=== PATIENT | female | born 1950 | race African-American/Black ===

== ENCOUNTER → 2016-03-20 | Outpatient (CLI) | payer OTHER ==
[~2016-03-20] MED LIST: ALBUAER3 INH; ASPI81TA82 PO; AZIT500T2 PO; BENZ100 PO; CALC-179 OR; DOXA1 OR; FLEX10TA PO; LISI10TA PO; MOME17I EACH NARE; POTA-267 PO; PRED-503 PO; SIMV20TA PO; SYNT175T PO; VERA240C OR; VITA400C70 PO
[2016-03-20 11:18] LABS: ANION GAP 5 MEQ/L (5-15); BICARBONATE 30.6 MEQ/L (21.0-32.0); BLOOD UREA NITROGEN 24 MG/DL (7-18); CHLORIDE 103 MEQ/L (98-107); GLOMERULAR FILTRATION RATE 89 ML/MIN (>89); GLUCOSE,FASTING 126 MG/DL (74-99); POTASSIUM 3.8 MEQ/L (3.5-5.1); SODIUM (NA) 139 MEQ/L (136-145)
[2016-03-20 11:24] LABS: BLOOD, URINE NEG (NEG); GLUCOSE,URINE NEG (NEG); KETONE, URINE NEG (NEG); NITRITE,URINE NEG (NEG); PH, URINE 6.5 (5.0-8.5); SQUAMOUS EPITHELIAL CELL URINE <1 /hpf (0-5); URINE COLOR YELLOW (YELLW/STRAW)
[2016-03-20 12:10] LABS: HEMOGLOBIN A1a 0.9 %; HEMOGLOBIN A1b 2.1 %; HEMOGLOBIN Ao 83.5 %; HEMOGLOBIN LA1C 2.2 %; HEMOGLOBIN P3 4.2 %
== END ==
LOC: CLAB 10:05
PROVIDERS: ATTEND Internal Medicine
DX: I10 Essential (primary) hypertension (principal); E11.9 Type 2 diabetes mellitus without complications
CPT/HCPCS: 36415; 80048; 81001; 83036

== ENCOUNTER 2016-04-25 16:17 | Emergency (ER) | payer OTHER ==
[~2016-04-25] VITALS: Ht 165.1 cm; Wt 98.0 kg
[~2016-04-25 16:17] MED LIST changes: -ALBUAER3 INH; -AZIT500T2 PO; -BENZ100 PO; -MOME17I EACH NARE; -PRED-503 PO
[2016-04-25 16:32] VITALS: BP 182/79; PULSE 83; RESP 19; TEMP 98.8; O2SAT 95
--- NOTE | 2016-04-25 16:41 | PD ---
PFSH Past Medical History Cancer: No Cardiovascular Problems: No High Cholesterol: Yes Diabetes: No Endocrine: No Genitourinary: No Hepatitis: No Hiatal Hernia: No Hypertension: Yes Immune Disorder: No Musculoskeletal: No Neurologic: No Psychiatric: No Reproductive: No Respiratory: No Thyroid Disease: Yes (HYPOTHROIDISM) Past Surgical History Abdominal Surgery: No AICD: No Cardiac Surgery: No Ear Surgery: No Endocrine Surgery: No Eye Surgery: No Genitourinary Surgery: No Gynecologic Surgery: Yes ( X 2) Joint Replacement: No Oral Surgery: Yes (TONSILLECTOMY) Pacemaker: No Thoracic Surgery: No Social History Alcohol Use: No Tobacco Use: No Substance Use: No Allergies-Medications (Allergen,Severity, Reaction): Coded Allergies: Sulfa (Verified Allergy, Mild, 04/25/16) Reported Meds & Prescriptions Reported Meds & Active Scripts Active Azithromycin 500 Mg Tab 500 Mg PO DAILY Nasonex Nasal [place] (Mometasone Furoate) 50 Mcg/Act Naspr 2 [place] EACH NARE DAILY PRN Tessalon Perles (Benzonatate) 100 Mg Cap 100 Mg PO TID PRN Deltasone (Prednisone) 20 Mg Tab 40 Mg PO DAILY 4 Days start 04/26/2016 Proair Hfa 8.5 GM Inh (Albuterol Sulfate) 90 Mcg/Act Aer 2 Puff INH Q4-6H PRN 108 mcg/actuation Reported Vitamin E-400 (Vitamin E) 400 Units Cap 400 Units PO DAILY Simvastatin 20 Mg Tab 20 Mg PO HS Verapamil Hcl Er (Verapamil Hcl) 240 Mg Cap 240 Mg OR BID Calcium (Calcium & Phosphorus W/ Vitami) Tab 1 OR BID Lisinopril/Hctz 10 mg/12.5 mg 10 mg/12.5 mg Tab 1 Tab PO BID Klor-Con 10 (Potassium Chloride) 10 Meq Tab 10 Meq PO BID Synthroid 175 mcg (Levothyroxine Sodium) 175 Mcg Tab 175 Mcg PO DAILY Doxazosin Mesylate 4 Mg Tab 4 Mg OR BID Flexeril (Cyclobenzaprine HCl) 10 Mg Tab 10 Mg PO DAILY Aspir-81 (Aspirin) 81 Mg Tab 81 Mg PO DAILY Data Data Last Documented VS Vital Signs Date Time Temp Pulse Resp B/P Pulse Ox O2 Delivery O2 Flow Rate FiO2 04/25/16 17:55 98 04/25/16 16:32 98.8 83 19 182/79 Orders Prednisone (Deltasone) (3/17/17 16:45) Albuterol Neb (Albuterol Neb) (04/25/16 16:45) MDM Scripts Azithromycin 500 Mg [id number] Mg PO DAILY #5 TAB Ref 0 Prov:Jeanie PittsP 04/25/16 Mometasone Nasal [place] (Nasonex Nasal [place])50 Mcg/Act Naspr2 [place] EACH NARE DAILY PRN (NASAL CONGESTION) #1 BOTTLE Ref 0 Prov:Jeanie PittsP 04/25/16 Benzonatate (Tessalon Perles)100 Mg [id number] Mg PO TID PRN (COUGH) #20 CAP Ref 0 Prov:Jeanie PittsP 04/25/16 Prednisone (Deltasone)20 Mg Tab40 Mg PO DAILY 4 Days Ref 0 start 04/26/2016 Prov:Jeanie PittsP 04/25/16 Albuterol 8.5 GM Inh (Proair Hfa 8.5 GM Inh)90 Mcg/Act Aer2 Puff INH Q4-6H PRN ( SOB/WHEEZING) #1 INHALER Ref 0 108 mcg/actuation Prov:Jeanie PittsP 04/25/16 Jeanie PittsP Apr 25, 2016 16:41
[2016-04-25] MEDS ORDERED: predniSONE 20 MG TAB PO ONE (16:45)
[2016-04-25] MEDS ORDERED: RESP: ALBUTEROL 2.5 MG/3 ML NEB (SCH) INH ONE (16:45)
[2016-04-25] MEDS ORDERED: AZIT500T2 PO (16:51)
[2016-04-25] MEDS ORDERED: MOME17I EACH NARE (16:51)
[2016-04-25] MEDS ORDERED: BENZ100 PO (16:51)
[2016-04-25] MEDS ORDERED: ALBUAER3 INH (16:51)
[2016-04-25] MEDS ORDERED: PRED-503 PO (16:51)
--- NOTE | 2016-04-25 17:00 | PD ---
HPI Chief Complaint: Respiratory Symptoms Time Seen by Provider: 16:49 Travel History International Travel<30 days: No Contact w/Intl Traveler<30days: No Traveled to known affect area: No History of Present Illness HPI 65-year-old female presents to the emergency Department with complaint of cough and mild nasal congestion for one week. She started wheezing last night. Denies chest tightness, chest pain, shortness of breath. Is a [employer] employee and while at work today a nurse listen to her lungs and that she was wheezing. She called her primary care provider and he wanted to put her on antibiotics but wanted to see her in the office and she couldn't make it before he closed. Denies fever, chills, nausea, vomiting. Denies ear pain, sore throat. Has tried [id number] medications with no relief of symptoms. Allergies to sulfa. Has established primary care provider. No other modifying factors or associated signs and symptoms. PFSH Past Medical History Hx Anticoagulant Therapy: Yes (ASA ) Cancer: No Cardiovascular Problems: Yes (HTN) High Cholesterol: Yes Diabetes: Yes (BORDERLINE ) Endocrine: No Genitourinary: No Hepatitis: No Hiatal Hernia: No Hypertension: Yes Immune Disorder: No Musculoskeletal: No Neurologic: No Psychiatric: No Reproductive: No Respiratory: No Thyroid Disease: Yes (HYPOTHROIDISM) ?: Not Past Surgical History Abdominal Surgery: No AICD: No Cardiac Surgery: No Ear Surgery: No Endocrine Surgery: No Eye Surgery: No Genitourinary Surgery: No Gynecologic Surgery: Yes ( X 2) Joint Replacement: No Oral Surgery: Yes (TONSILLECTOMY) Pacemaker: No Thoracic Surgery: No Social History Alcohol Use: No Tobacco Use: No Substance Use: No Allergies-Medications (Allergen,Severity, Reaction): Coded Allergies: Sulfa (Verified Allergy, Mild, 04/25/16) Reported Meds & Prescriptions Reported Meds & Active Scripts Active Azithromycin 500 Mg Tab 500 Mg PO DAILY Nasonex Nasal [place] (Mometasone Furoate) 50 Mcg/Act Naspr 2 [place] EACH NARE DAILY PRN Tessalon Perles (Benzonatate) 100 Mg Cap 100 Mg PO TID PRN Deltasone (Prednisone) 20 Mg Tab 40 Mg PO DAILY 4 Days start 04/26/2016 Proair Hfa 8.5 GM Inh (Albuterol Sulfate) 90 Mcg/Act Aer 2 Puff INH Q4-6H PRN 108 mcg/actuation Reported Vitamin E-400 (Vitamin E) 400 Units Cap 400 Units PO DAILY Simvastatin 20 Mg Tab 20 Mg PO HS Verapamil Hcl Er (Verapamil Hcl) 240 Mg Cap 240 Mg OR BID Calcium (Calcium & Phosphorus W/ Vitami) Tab 1 OR BID Lisinopril/Hctz 10 mg/12.5 mg 10 mg/12.5 mg Tab 1 Tab PO BID Klor-Con 10 (Potassium Chloride) 10 Meq Tab 10 Meq PO BID Synthroid 175 mcg (Levothyroxine Sodium) 175 Mcg Tab 175 Mcg PO DAILY Doxazosin Mesylate 4 Mg Tab 4 Mg OR BID Flexeril (Cyclobenzaprine HCl) 10 Mg Tab 10 Mg PO DAILY Aspir-81 (Aspirin) 81 Mg Tab 81 Mg PO DAILY Review of Systems Except as stated in HPI: all other systems reviewed are Neg Physical Exam Narrative GENERAL: Well-nourished, well-developed female patient, in no acute distress; afebrile, nontoxic-appearing SKIN: Warm and dry. HEAD: Atraumatic. Normocephalic. EYES: Pupils equal and round. No scleral icterus. No injection or drainage. ENT: Mucosa pink and moist. No erythema or exudates. No uvular edema. No uvular , palatal, or tonsillar deviation. Airway patent. Nares without nasal blood, purulent drainage or septal hematoma. EARS: Bilateral pinnae and external canals appear within normal limits. Bilateral tympanic membranes without erythema, dullness or perforation. NECK: Trachea midline. No lymphadenopathy. CARDIOVASCULAR: Regular rate and rhythm. No murmur appreciated. RESPIRATORY: No accessory muscle use. Lungs with mild Wheezing throughout to auscultation. Breath sounds equal bilaterally. No retractions or tachypnea. No Audible wheezing noted. GASTROINTESTINAL: Abdomen soft, non-tender, nondistended. Hepatic and splenic margins not palpable. Bowel sounds are active 4 quadrants. MUSCULOSKELETAL: No obvious deformities. No clubbing. No cyanosis. No edema. NEUROLOGICAL: Awake and alert. Oriented 3. No obvious cranial nerve deficits. Motor grossly within normal limits. Normal speech. Moves all extremities. 5/5 strength to all extremities. PSYCHIATRIC: Appropriate mood and affect; insight and judgment normal. Data Data Last Documented VS Vital Signs Date Time Temp Pulse Resp B/P Pulse Ox O2 Delivery O2 Flow Rate FiO2 04/25/16 17:55 98 04/25/16 16:32 98.8 83 19 182/79 Orders Prednisone (Deltasone) (04/25/16 16:45) Albuterol Neb (Albuterol Neb) (04/25/16 16:45) [facility] Medical Decision Making Medical Screen Exam Complete: Yes Emergency Medical Condition: Yes Medical Record Reviewed: Yes Differential Diagnosis Bronchitis, influenza, upper respiratory infection Narrative Course 65-year-old female physical exam And history of present illness consistent with acute bronchitis. She is in no acute distress and oxygen saturation is 95% on room air. She is without retractions or tachypnea. Diffuse wheezing to bilateral lung sounds on auscultation. She is afebrile and nontoxic-appearing. She denies fever, chills, nausea, vomiting. Albuterol nebulizer and Deltasone ordered. Patient reports improvement in symptoms after albuterol nebulizer. Lungs are clear and equal throughout. She denies chest tightness or shortness of breath. Requesting antibiotic for home. Azithromycin, pro-air inhaler, Deltasone, Tessalon Perles, Nasonex nasal spray prescribed for home. Patient verbalizes understanding and agreement with treatment plan. Patient is medically cleared and stable for discharge. Discussed reasons to return to the emergency department. Instructed patient to follow up with primary care provider. Patient agrees with treatment plan. The patients vital signs are stable and the patient is stable for outpatient follow-up and treatment. Patient discharged home, stable and in no acute distress. Diagnosis Primary Impression: Bronchitis Referrals: Primary Care Physician Patient Instructions: Acute Bronchitis (ED), General Instructions, Safe Use of Cough and Cold Medicines (ED) Departure Forms: Tests/Procedures, Work Release Enter return to work date: Apr 26, 2016 Additional Instructions: Use Albuterol inhaler as prescribed Take oral steroids as prescribed and complete full course Use Tessalon Perles as prescribed to decrease coughing spasms Xozr-pli-zhgaohd decongestants or antihistamines as directed and as needed for symptom management Your cough can last 4-6 weeks Drink plenty of fluids to prevent dehydration Use hot air humidifier to decrease cough exacerbation Turn off ceiling fans and sleep with head of bed elevated Avoid triggers such as second hand smoke, dust, known allergens Follow-up with your primary care provider Return to the emergency department immediately with worsening of symptoms Med/Other Pt SpecificInfo: Prescription(s) given Scripts Azithromycin 500 Mg [id number] Mg PO DAILY #5 TAB Ref 0 Prov:Jeanie Pitts 04/25/16 Mometasone Nasal [place] (Nasonex Nasal [place])50 Mcg/Act Naspr2 [place] EACH NARE DAILY PRN (NASAL CONGESTION) #1 BOTTLE Ref 0 Prov:Jeanie Pitts 04/25/16 Benzonatate (Tessalon Perles)100 Mg [id number] Mg PO TID PRN (COUGH) #20 CAP Ref 0 Prov:Jeanie Pitts 04/25/16 Prednisone (Deltasone)20 Mg Tab40 Mg PO DAILY 4 Days Ref 0 start 04/26/2016 Prov:Jeanie Pitts 04/25/16 Albuterol 8.5 GM Inh (Proair Hfa 8.5 GM Inh)90 Mcg/Act Aer2 Puff INH Q4-6H PRN ( SOB/WHEEZING) #1 INHALER Ref 0 108 mcg/actuation Prov:Jeanie Pitts 04/25/16 Disposition: 01 DISCHARGE HOME Condition: Stable Jeanie Pitts Apr 25, 2016 17:00
== END 2016-04-25 17:55 | disposition home or self-care (01) ==
LOC: NEPB 16:17
DX: J40 Bronchitis, not specified as acute or chronic (principal); I10 Essential (primary) hypertension; Z79.82 Long term (current) use of aspirin; Z88.2 Allergy status to sulfonamides
CPT/HCPCS: 94664; 99283; J7512; J7613

== ENCOUNTER 2016-12-01 07:41 | Emergency (ER) | payer OTHER ==
[~2016-12-01] VITALS: Ht 165.1 cm; Wt 100.0 kg
[~2016-12-01 07:41] MED LIST changes: +ALBUAER3 INH; +AZIT500T2 PO; +BENZ100 PO; +MOME17I EACH NARE; +PRED-503 PO
[2016-12-01 07:53] VITALS: BP 198/90; PULSE 92; RESP 17; TEMP 97.6; O2SAT 99
[2016-12-01] MEDS ORDERED: SODIUM CHLORIDE 0.9% FLUSH 10 ML FLUSH IV FLUSH PRN (08:15)
[2016-12-01] MEDS ORDERED: diphenhydrAMINE HCL 50 MG/ML VIAL IVP ONE (08:15)
[2016-12-01] MEDS ORDERED: methylPREDNISolone SOD SUCC 125 MG/2 ML VIAL IV PUSH ONE (08:15)
[2016-12-01] MEDS ORDERED: FAMOTIDINE 20 MG/2 ML VIAL IV PUSH ONE (08:15)
[2016-12-01 08:41] VITALS: BP 187/77; PULSE 86; RESP 18; O2SAT 98
--- NOTE | 2016-12-01 09:19 | RADRPT ---
EXAM DATE/TIME: 12/01/2016 08:35 [facility] COMPARISON: No previous studies available for comparison. INDICATIONS : Pt states she is having mild discomfort and feels as if there is something in her throat. Pt is also having difficulty breathing. MEDICAL HISTORY : Hypertension. Cyst left side of throat. SURGICAL HISTORY : None. ENCOUNTER: Initial ACUITY: 1 day PAIN SCORE: 0/10 LOCATION: Neck. FINDINGS: Two view examination of the soft tissues of the neck demonstrates the hypopharyngeal airway to have a grossly normal configuration. The trachea is midline. No radiopaque foreign bodies are seen. Calc ification in the region of the carotid bifurcation bilaterally. Normal image of the cervical vertebr al bodies. Unfused tip of the spinous process of C7. CONCLUSION: Negative two-view examination the soft tissues of the neck. Cam Dueñas MD on December 01, 2016 at 9:16 Board Certified Radiologist. This report was verified electronically.
[2016-12-01] MEDS ORDERED: DIPH25CA PO (10:33)
[2016-12-01] MEDS ORDERED: PRED20 PO (10:33)
--- NOTE | 2016-12-01 10:34 | PD ---
HPI Chief Complaint: ENT Complaint Time Seen by Provider: 08:09 Travel History International Travel<30 days: No Contact w/Intl Traveler<30days: No Traveled to known affect area: No History of Present Illness HPI 66 yo F c/o fullness sensation in throat. pt woke up with pain and a fullness sensation. She reports completing a course of Keflex about a week ago and wonders if she might be having an allergic reaction to it. She reports a tick bite one week prior. She also reports having undergone a drainage of a cyst of the left anterior neck several days prior. No fever. No dyspnea. PFSH Past Medical History Hx Anticoagulant Therapy: Yes (ASA ) Cancer: No Cardiovascular Problems: Yes (HTN) High Cholesterol: Yes Diabetes: Yes (borderline) Patient Takes Glucophage: No Endocrine: No Genitourinary: No Hepatitis: No Hiatal Hernia: No Hypertension: Yes Immune Disorder: No Musculoskeletal: No Neurologic: No Psychiatric: No Reproductive: No Respiratory: No Thyroid Disease: Yes (hypo) Influenza Vaccination: Yes ?: Not Past Surgical History Abdominal Surgery: No AICD: No Cardiac Surgery: No Ear Surgery: No Endocrine Surgery: No Eye Surgery: No Genitourinary Surgery: No Gynecologic Surgery: Yes ( X 2) Joint Replacement: No Oral Surgery: Yes (TONSILLECTOMY) Pacemaker: No Thoracic Surgery: No Social History Alcohol Use: Yes (on occasion) Tobacco Use: No Substance Use: No Allergies-Medications (Allergen,Severity, Reaction): Coded Allergies: Sulfa (Sulfonamide Antibiotics) (Unverified Allergy, Mild, 09/23/16) Reported Meds & Prescriptions Reported Meds & Active Scripts Active Diphenhydramine (Diphenhydramine HCl) 25 Mg Cap 25 Mg PO Q6H PRN Prednisone 20 Mg Tab 40 Mg PO DAILY 4 Days Take 40 mg (2 tablets) daily for 5 days Azithromycin 500 Mg Tab 500 Mg PO DAILY Nasonex Nasal [place] (Mometasone Furoate) 50 Mcg/Act Naspr 2 [place] EACH NARE DAILY PRN Tessalon Perles (Benzonatate) 100 Mg Cap 100 Mg PO TID PRN Deltasone (Prednisone) 20 Mg Tab 40 Mg PO DAILY 4 Days start 04/26/2016 Proair Hfa 8.5 GM Inh (Albuterol Sulfate) 90 Mcg/Act Aer 2 Puff INH Q4-6H PRN 108 mcg/actuation Reported Vitamin E-400 (Vitamin E) 400 Units Cap 400 Units PO DAILY Simvastatin 20 Mg Tab 20 Mg PO HS Verapamil Hcl Er (Verapamil Hcl) 240 Mg Cap 240 Mg OR BID Calcium (Calcium & Phosphorus W/ Vitami) Tab 1 OR BID Lisinopril/Hctz 10 mg/12.5 mg 10 mg/12.5 mg Tab 1 Tab PO BID Klor-Con 10 (Potassium Chloride) 10 Meq Tab 10 Meq PO BID Synthroid 175 mcg (Levothyroxine Sodium) 175 Mcg Tab 175 Mcg PO DAILY Doxazosin Mesylate 4 Mg Tab 4 Mg OR BID Flexeril (Cyclobenzaprine HCl) 10 Mg Tab 10 Mg PO DAILY Aspir-81 (Aspirin) 81 Mg Tab 81 Mg PO DAILY Review of Systems Except as stated in HPI: all other systems reviewed are Neg General / Constitutional: No: Fever Physical Exam Narrative GENERAL: Well-nourished well-developed 66-year-old female no acute distress SKIN: Warm and dry. HEAD: Atraumatic. Normocephalic. EYES: Pupils equal and round. No scleral icterus. No injection or drainage. ENT: No nasal bleeding or discharge. Mucous membranes pink and moist. Minimal uvular edema present. Posterior oropharynx widely patent. NECK: Trachea midline. No JVD. CARDIOVASCULAR: Regular rate and rhythm. RESPIRATORY: No accessory muscle use. Clear to auscultation. Breath sounds equal bilaterally. GASTROINTESTINAL: Abdomen soft, non-tender, nondistended. Hepatic and splenic margins not palpable. MUSCULOSKELETAL: Extremities without clubbing, cyanosis, or edema. No obvious deformities. NEUROLOGICAL: Awake and alert. No obvious cranial nerve deficits. Motor grossly within normal limits. Five out of 5 muscle strength in the arms and legs. Normal speech. PSYCHIATRIC: Appropriate mood and affect; insight and judgment normal. Data Data Last Documented VS Vital Signs Date Time Temp Pulse Resp B/P (MAP) Pulse Ox O2 Delivery O2 Flow Rate FiO2 12/01/16 11:09 72 176/77 (110) 99 12/01/16 08:41 20 12/01/16 08:41 Room Air 12/01/16 07:53 97.6 Orders Orders Ecg Monitoring (12/01/16 08:09) Iv Access Insert/Monitor (12/01/16 08:09) Oximetry (12/01/16 08:09) Diphenhydramine Inj (Benadryl Inj) (12/01/16 08:15) Methylprednisolone So Succ Inj (Solumedr (12/01/16 08:15) Famotidine Inj (Pepcid Inj) (12/01/16 08:15) Sodium Chloride 0.9% Flush (Ns Flush) (12/01/16 08:15) Soft Tissue Neck (12/01/16 ) Ed Discharge Order (12/01/16 10:34) [facility] Medical Decision Making Medical Screen Exam Complete: Yes Emergency Medical Condition: Yes Medical Record Reviewed: Yes Differential Diagnosis Angioedema, anaphylaxis, uvular edema Narrative Course Solu-Medrol Benadryl and Pepcid given. No interval increase in size of uvula observed. Return precautions discussed. Patient ready for discharge. Diagnosis Primary Impression: Uvular swelling Referrals: Walter Junior MD 2 days Additional Instructions: You have a choice when it comes to health care, and we are glad that you chose [facility]. Hopefully, we have met your expectations on today's visit. You are welcome to return to [facility] at any time, as we are committed to meeting the health care needs of our community. Med/Other Pt SpecificInfo: Prescription(s) given Scripts Diphenhydramine (Diphenhydramine) 25 Mg Cap 25 MG PO Q6H Y for ALLERGIES, #20 CAP 0 Refills Prov: Seven Edwards MD 12/01/16 Prednisone (Prednisone) 20 Mg Tab 40 MG PO DAILY for 4 Days, #8 TAB 0 Refills Take 40 mg (2 tablets) daily for 5 days Prov: Seven Edwards MD 12/01/16 Disposition: 01 DISCHARGE HOME Condition: Stable Seven Edwards MD Dec 01, 2016 10:34
[2016-12-01 11:09] VITALS: BP 176/77
== END 2016-12-01 11:09 | disposition home or self-care (01) ==
LOC: NEPC 07:41
DX: K92.89 Other specified diseases of the digestive system (principal)
CPT/HCPCS: 70360; 96374; 96375; 99284; J1200; J2930

== ENCOUNTER 2017-01-05 19:17 | Observation (INO) | payer OTHER ==
[~2017-01-05 19:17] MED LIST changes: +DIPH25CA PO; +PRED20 PO
[2017-01-05 19:18] VITALS: BP 240/106; PULSE 89; RESP 18; TEMP 98.1; O2SAT 99
[2017-01-05 20:45] LABS: AUTOMATED NEUTROPHIL # 2.7 TH/MM3 (1.8-7.7); BASOPHIL % 0.6 % (0.0-2.0); EOSINOPHIL # 0.3 TH/MM3 (0-0.4); EOSINOPHIL % 4.7 % (0.0-4.0); HEMATOCRIT 40.5 % (35.0-46.0); HEMO FLAGS DIFF FINAL; LYMPH % 36.9 % (9.0-44.0); LYMPHOCYTE # 2.1 TH/MM3 (1.0-4.8); MEAN CELL VOLUME 88.6 FL (80.0-100.0); MEAN CORPUSCULAR HGB CONC 32.8 % (32.0-36.0); MONO % 11.2 % (0.0-8.0); NEUT % 46.6 % (16.0-70.0); PLATELET COUNT 159 TH/MM3 (150-450); RED BLOOD COUNT 4.57 MIL/MM3 (4.00-5.30); WHITE BLOOD COUNT 5.8 TH/MM3 (4.0-11.0)
[2017-01-05 20:53] LABS: BLOOD, URINE NEG (NEG); COMMENT (UR) CULT NOT INDICATED; CULTURE IF INDICATED CULT NOT INDICATED; GLUCOSE,URINE NEG (NEG); KETONE, URINE NEG (NEG); MUCUS URINE FEW /lpf (OCC); NITRITE,URINE NEG (NEG); SQUAMOUS EPITHELIAL CELL URINE 1 /hpf (0-5); URINE COLOR LIGHT-YELLOW (YELLW/STRAW)
[2017-01-05 20:55] LABS: APTT (PATIENT) 26.8 SEC (24.3-30.1); PROTHROMBIN TIME - PATIENT 11.2 SEC (9.8-11.6)
[2017-01-05 21:07] LABS: BICARBONATE 27.6 MEQ/L (21.0-32.0); POTASSIUM 3.8 MEQ/L (3.5-5.1)
[2017-01-05 21:23] LABS: CKMB 2.8 NG/ML (0.5-3.6)
--- NOTE | 2017-01-05 21:46 | PD ---
HPI Chief Complaint: Hypertension Time Seen by Provider: 21:41 Travel History International Travel<30 days: No Contact w/Intl Traveler<30days: No Traveled to known affect area: No History of Present Illness HPI The patient is a 66 year old female who presents to the [facility] emergency department with a history of central chest pain that she reports began at 11 AM today. The patient reports that the pain has been constant. She reports that the pain is a "soreness" sensation. She denies having any radiation of pain. She denies having any diaphoresis, nausea, vomiting, or shortness of breath. She denies having any prior history of cardiac disease. She reports that she last had a stress test done several years ago. She does however have a history of high blood pressure. She also takes a low-dose aspirin daily, however she has not taken it today. She reports that her recent history has been complicated by developing angioedema related to lisinopril use. Her lisinopril was discontinued approximately 4 weeks ago and 3 weeks ago she was started on metoprolol by her primary care physician, Dr. Junior. She reports that since starting the new medication she's had intermittent sensations of fluttering in her chest. She reports that she last saw Dr. Junior 2 days ago. She was told that she had a heart murmur and will be having a 2-D echo. She also had an ECG done in his office that showed some cardiac enlargement. She reports that her blood pressure systolic at that time was 150. Otherwise on review of systems, she denies having any recent fevers, cough , congestion, neck pain, abdominal pain, diarrhea, urinary symptoms, or neurologic symptoms. [facility] Past Medical History Narrative Medical The patient's past medical history is significant for hypertension, being borderline diabetic, hyperlipidemia, hypothyroid disorder, history of angioedema related to lisinopril use. Hx Anticoagulant Therapy: Yes (ASA ) Cancer: No Cardiovascular Problems: Yes (HTN) High Cholesterol: Yes Diabetes: Yes (borderline) Patient Takes Glucophage: No Endocrine: No Gastrointestinal Disorders: Yes Genitourinary: No Hepatitis: No Hiatal Hernia: No Hypertension: Yes Immune Disorder: No Medical other: Yes (HYPERLIPIDEMIA) Musculoskeletal: No Neurologic: No Psychiatric: No Reproductive: No Respiratory: No Thyroid Disease: Yes (hypo) Past Surgical History Narrative Surgical x2, tonsillectomy. Abdominal Surgery: No AICD: No Cardiac Surgery: No Ear Surgery: No Endocrine Surgery: No Eye Surgery: No Genitourinary Surgery: No Gynecologic Surgery: Yes ( X 2) Joint Replacement: No Oral Surgery: Yes (TONSILLECTOMY) Pacemaker: No Thoracic Surgery: No Other Surgery: Yes Social History Alcohol Use: Yes (on occasion) Tobacco Use: No Substance Use: No Allergies-Medications (Allergen,Severity, Reaction): Coded Allergies: lisinopril (Verified Allergy, Severe, 01/05/17) THROAT/ TONGUE SWELLING Sulfa (Sulfonamide Antibiotics) (Unverified Allergy, Mild, 09/23/16) Reported Meds & Prescriptions Reported Meds & Active Scripts Active Reported Klor-Con 10 (Potassium Chloride) 10 Meq Tab 10 Meq PO BID Vitamin E (Vitamin E Mixed) 400 Unit Tablet Verapamil (Verapamil HCl) 120 Mg Tab 240 Mg PO BID Synthroid (Levothyroxine Sodium) 175 Mcg Tab 175 Mcg PO DAILY Simvastatin 20 Mg Tab 20 Mg PO HS Metoprolol Tartrate 50 Mg Tab 50 Mg PO BID Flexeril (Cyclobenzaprine HCl) 10 Mg Tab 10 Mg PO DAILY Aspirin 81 Mg Chew 81 Mg CHEW DAILY Klor-Con 10 (Potassium Chloride) 10 Meq Tab 10 Meq PO BID Doxazosin Mesylate 4 Mg Tab 4 Mg OR BID Review of Systems Except as stated in HPI: all other systems reviewed are Neg General / Constitutional: No: Fever Eyes: No: Visual changes HENT: No: Headaches Cardiovascular: Positive: Chest Pain or Discomfort, No: Dyspnea on exertion Respiratory: No: Shortness of Breath Gastrointestinal: No: Nausea, Vomiting, Diarrhea, Abdominal Pain Genitourinary: No: Dysuria Musculoskeletal: No: Pain Skin: No Rash Neurologic: No: Weakness, Focal Abnormalities, Change in Mentation, Slurred Speech, Sensory Disturbance Psychiatric: No: Depression Endocrine: No: Polydipsia Hematologic/Lymphatic: No: Easy Bruising Physical Exam Narrative General: The patient is a well-developed well-nourished female in no acute distress. Head and Neck exam: Head is normocephalic atraumatic. Eyes: EOMI, pupils are equal round and reactive to light. Nose: Midline septum with pink mucous membranes Mouth: Dentition unremarkable. Moist mucus membranes. Posterior oropharynx is not erythematous. No tonsillar hypertrophy. Uvula midline. Airway patent. Neck: No palpable lymphadenopathy. No nuchal rigidity. No thyromegaly. Cardiovascular: Regular rate and rhythm with a 1/6 systolic murmur, no gallops or rubs. Lungs: Clear to auscultation bilaterally. No wheezes, rhonchi, or rales. Abdomen: Soft, without tenderness to palpation in all 4 quadrants of the abdomen. No guarding, rebound, or rigidity. Normal bowel sounds are audible. No tenderness on palpation of McBurney's point. Extremities: No clubbing, cyanosis, or edema. 2+ pulses in all 4 extremities. No calf tenderness on palpation. Back: No costovertebral angle tenderness to palpation. Neurologic Exam: Grossly nonfocal. Skin Exam: No rash noted. Intact skin that is warm and dry. Data Data Last Documented VS Vital Signs Date Time Temp Pulse Resp B/P (MAP) Pulse Ox O2 Delivery O2 Flow Rate FiO2 01/05/17 22:11 81 16 233/94 (140) 98 Room Air 01/05/17 19:18 98.1 Orders Orders Electrocardiogram (01/05/17 19:35) Basic Metabolic Panel (Bmp) (01/05/17 19:35) Ckmb (Isoenzyme) Profile (01/05/17 19:35) Complete Blood Count With Diff (01/05/17 19:35) Magnesium (Mg) (01/05/17 19:35) Prothrombin Time / Inr (Pt) (01/05/17 19:35) Act Partial Throm Time (Ptt) (01/05/17 19:35) Troponin I (01/05/17 19:35) Chest, Pa & Lat (01/05/17 19:35) Urinalysis - C+S If Indicated (01/05/17 20:10) CKMB (01/05/17 20:15) CKMB% (01/05/17 20:15) Cta Thor Abd Aorta W Iv C W3d (01/05/17 ) Nitroglycerin 2% Oint (Nitroglycerin 2% (01/05/17 22:15) Nitroglycerin Sl (Nitrostat Sl) (01/05/17 22:15) Iohexol 350 Inj (Omnipaque 350 Inj) (01/05/17 22:26) Admit Order (Ed Use Only) (01/05/17 23:23) Labs Laboratory Tests Test 01/05/17 20:15 White Blood Count 5.8 TH/MM3 Red Blood Count 4.57 MIL/MM3 Hemoglobin 13.3 GM/DL Hematocrit 40.5 % Mean Corpuscular Volume 88.6 FL Mean Corpuscular Hemoglobin 29.0 PG Mean Corpuscular Hemoglobin Concent 32.8 % Red Cell Distribution Width 14.0 % Platelet Count 159 TH/MM3 Mean Platelet Volume 11.1 FL Neutrophils (%) (Auto) 46.6 % Lymphocytes (%) (Auto) 36.9 % Monocytes (%) (Auto) 11.2 % Eosinophils (%) (Auto) 4.7 % Basophils (%) (Auto) 0.6 % Neutrophils # (Auto) 2.7 TH/MM3 Lymphocytes # (Auto) 2.1 TH/MM3 Monocytes # (Auto) 0.7 TH/MM3 Eosinophils # (Auto) 0.3 TH/MM3 Basophils # (Auto) 0.0 TH/MM3 CBC Comment DIFF FINAL Differential Comment Prothrombin Time 11.2 SEC Prothromb Time International Ratio 1.0 RATIO Activated Partial Thromboplast Time 26.8 SEC Urine Color LIGHT-YELLOW Urine Turbidity CLEAR Urine pH 6.0 Urine Specific [place] 1.023 Urine Protein NEG mg/dL Urine Glucose (UA) NEG mg/dL Urine Ketones NEG mg/dL Urine Occult Blood NEG Urine Nitrite NEG Urine Bilirubin NEG Urine Urobilinogen LESS THAN 2.0 MG/DL Urine Leukocyte Esterase NEG Urine RBC 1 /hpf Urine WBC LESS THAN 1 /hpf Urine Squamous Epithelial Cells 1 /hpf Urine Mucus FEW /lpf Microscopic Urinalysis Comment CULT NOT INDICATED Blood Urea Nitrogen 28 MG/DL Creatinine 0.98 MG/DL Random Glucose 123 MG/DL Calcium Level 8.7 MG/DL Magnesium Level 2.0 MG/DL Sodium Level 142 MEQ/L Potassium Level 3.8 MEQ/L Chloride Level 109 MEQ/L Carbon Dioxide Level 27.6 MEQ/L Anion Gap 5 MEQ/L Estimat Glomerular Filtration Rate 68 ML/MIN Total Creatine Kinase 271 U/L Creatine Kinase MB 2.8 NG/ML Creatine Kinase MB % 1.0 % Troponin I 0.04 NG/ML MDM Medical Decision Making Medical Screen Exam Complete: Yes Emergency Medical Condition: Yes Medical Record Reviewed: Yes Differential Diagnosis Acute coronary syndrome, versus aortic dissection, versus pneumonia, versus costochondritis Narrative Course During the course of the patients emergency department visit, the patients history, examination, and differential diagnosis were reviewed with the patient. The patient was placed on a counter professional with oximetry and frequent blood pressure monitoring. The patient had IV access obtained and blood work sent for analysis. The patient had an ECG done on arrival, the patient's ECG shows a sinus rhythm with frequent ventricular premature complexes, left ventricular hypertrophy by voltage, QRS duration is 104 ms, QTC 451 ms, no acute ST segment elevation. A CT scan of the aorta was ordered. The patient was initially provided nitroglycerin sublingual every 5 minutes 3, nitroglycerin 1 inch the chest wall. The patients laboratory studies were reviewed and remarkable for [white count of 5.8, hemoglobin 13.3, platelets 159 with 11.2 monocytes. CMP is remarkable for chloride of 109, BUN 28, glucose 123, CPK 271 with an MB percent of 1, troponin I 0.04, PT 11.2, INR 1.0, PTT 26.8, urinalysis within normal limits. Radiology studies were reviewed and remarkable for a chest x-ray that shows no evidence of acute cardiopulmonary disease, CTA shows no evidence of aortic dissection or aneurysm, coronary artery calcifications are noted. The patient will be admitted to the chest pain center for rule out serial cardiac enzyme protocol followed by stress testing. The patient was given aspirin 324 mg by mouth 1, labetalol 10 mg IV for hypertension. The patients results were discussed with the patient, including the plan of care. I explained that further testing and/ or monitoring is indicated based on the patients history, examination, and/ or laboratory findings. Therefore, I recommended admission for additional evaluation. The patient expressed understanding and was agreeable with this plan. The patient was admitted to the hospital in stable condition and sent to a bed under the care of the chest pain center. Diagnosis Primary Impression: Chest pain, rule out acute myocardial infarction Admitting Information Admitting Physician Requests: Observation Fiona Valadez MD Jan 05, 2017 21:46
--- NOTE | 2017-01-05 21:47 | RADRPT ---
EXAM DATE/TIME: 01/05/2017 20:03 [facility] COMPARISON: No previous studies available for comparison. INDICATIONS : Chest pain and pressure. MEDICAL HISTORY : Hypertension. SURGICAL HISTORY : None. ENCOUNTER: Initial ACUITY: 1 day PAIN SCORE: 4/10 LOCATION: Bilateral chest FINDINGS: PA and lateral views of the chest demonstrate the lungs to be symmetrically aerated without evidence of mass, infiltrate or effusion. The cardiomediastinal contours are unremarkable. Osseous structure s are intact with some degenerative spurring of the dorsal spine. CONCLUSION: No acute cardiopulmonary process. Sarmad Cabrera MD on January 05, 2017 at 21:44 Board Certified Radiologist. This report was verified electronically.
[2017-01-05] MEDS ORDERED: CYCL10TA PO (21:52)
[2017-01-05] MEDS ORDERED: ASPI-516 CHEW (21:52)
[2017-01-05] MEDS ORDERED: VERA120T3 PO (21:52)
[2017-01-05] MEDS ORDERED: METO50TA PO (21:52)
[2017-01-05] MEDS ORDERED: SYNT175T PO (21:52)
[2017-01-05] MEDS ORDERED: VITA400T20 (21:52)
[2017-01-05] MEDS ORDERED: KLOR10TA PO (21:52)
[2017-01-05] MEDS ORDERED: SIMV20TA PO (21:52)
[2017-01-05 22:11] VITALS: BP 233/94; PULSE 81; RESP 16; O2SAT 98
[2017-01-05] MEDS ORDERED: NITROGLYCERIN 2% OINT 1 GM PACKET TOPICAL ONE (22:15)
[2017-01-05] MEDS ORDERED: NITROGLYCERIN 0.4 MG SL 25 TABS/BTL SL PRN (22:15)
[2017-01-05] MEDS ORDERED: IOHEXOL 350 MG/ML 10 ML VIAL (for RAD DIAG) IVCONTRAST ONE (22:26)
--- NOTE | 2017-01-05 22:57 | RADRPT ---
EXAM DATE/TIME: 01/05/2017 22:21 [facility] COMPARISON: No previous studies available for comparison. INDICATIONS : Substernal chest pain. IV CONTRAST: 75 cc Omnipaque 350 (iohexol) IV RADIATION DOSE: 20.69 CTDIvol (mGy) MEDICAL HISTORY : Hypertension. SURGICAL HISTORY : None. ENCOUNTER: Initial ACUITY: 1 day PAIN SCALE: 4/10 LOCATION: chest TECHNIQUE: Volumetric scanning was performed using a multi-row detector CT scanner. The data was post processed with a variety of visualization algorithms including full volume maximum intensity projection, multi -planar sliding thin slab reformation, curved planar reformation, and surface rendering techniques. Using automated exposure control and adjustment of the mA and/or kV according to patient size, radiat ion dose was kept as low as reasonably achievable to obtain optimal diagnostic quality images. DICOM format image data is available electronically for review and comparison. FINDINGS: LUNGS: There is no consolidation or pneumothorax. No concerning pulmonary nodule is visualized. Small bilat eral pleural effusions. MEDIASTINUM: No abnormally enlarged lymph nodes by CT criteria. No axillary or hilar abnormalities are identified. Atherosclerotic calcification of the coronary arteries. ABDOMEN: The liver and spleen are free of focal defects. The gallbladder and pancreas demonstrate no abnormali ty. The adrenal glands are normal. The kidneys demonstrate no evidence of solid renal mass or hydrone phrosis. No free fluid or abdominal masses are identified. No para-aortic adenopathy is seen. PELVIS: No evidence of free fluid or pelvic mass. No abnormally enlarged inguinal or retroperitoneal lymph no glenny are present. The bladder is unremarkable. THORACIC AORTA: The thoracic aortic root is normal with normal branching of the great vessels. There is no evidence of aneurysm or dissection. ABDOMINAL AORTA: The aorta is normal in caliber without aneurysm or dissection. The renal arteries are patent bilater ally. The proximal celiac and superior mesenteric arteries are patent and normal in diameter. PELVIC VESSELS: The internal iliac and external iliac vessels are patent without aneurysm or stenosis. CONCLUSION: 1. Small bilateral pleural effusions. 2. Otherwise negative. Thoracoabdominal aorta is normal in caliber throughout its length without aneu rysmal disease or dissection. 3. Atherosclerotic calcification of the coronary arteries. Sarmad Cabrera MD on January 05, 2017 at 22:52 Board Certified Radiologist. This report was verified electronically.
[2017-01-05] MEDS ORDERED: ASPIRIN 81 MG CHEW TAB CHEW ONE (23:30)
[2017-01-05 23:50] VITALS: BP 203/81; PULSE 76; RESP 16; O2SAT 96
[2017-01-06] VITALS (11 sets, daily range): BP systolic 150–217; BP diastolic 75–96; PULSE 67–84; RESP 16–20; TEMP 96.6–98; O2SAT 95–98
[2017-01-06] MEDS ORDERED: SODIUM CHLORIDE 0.9% FLUSH 10 ML FLUSH IV FLUSH PRN
[2017-01-06] MEDS ORDERED: LABETALOL HCL 100 MG/20 ML VIAL IV PUSH ONE
[2017-01-06] MEDS: NITROGLYCERIN 2% OINT 1 GM PACKET TOP SCH ×3 (00:21→11:23)
[2017-01-06 00:55] LABS: CKMB 2.5 NG/ML (0.5-3.6)
[2017-01-06] MEDS ORDERED: amLODIPine BESYLATE 5 MG TAB PO ONE (02:45)
[2017-01-06] MEDS ORDERED: CYCLOBENZAPRINE HCL 10 MG TAB PO ONE (02:45)
[2017-01-06] MEDS: ACETAMINOPHEN 500 MG CPLT PO PRN ×2 (02:48→11:26)
[2017-01-06 03:10] LABS: CKMB 2.3 NG/ML (0.5-3.6)
[2017-01-06] MEDS ORDERED: LEVOTHYROXINE SODIUM 50 MCG TAB PO SCH ×2 (06:00→13:00)
[2017-01-06] MEDS ORDERED: DOXAZOSIN MESYLATE 4 MG TAB PO SCH (09:00)
[2017-01-06] MEDS ORDERED: VERAPAMIL HCL 120 MG TAB PO SCH (09:00)
[2017-01-06] MEDS ORDERED: SODIUM CHLORIDE 0.9% FLUSH 10 ML FLUSH IV FLUSH SCH (09:00)
[2017-01-06] MEDS ORDERED: METOPROLOL TARTRATE 50 MG TAB PO SCH (09:00)
[2017-01-06] MEDS ORDERED: REGADENOSON INJ 0.4 MG/5 ML SYR ONE (09:56)
--- NOTE | 2017-01-06 10:08 | HHI.HP ---
[facility] Primary Care Physician Walter Junior MD Chief Complaint Chest pain History of Present Illness This is a 66-year-old female with history of hypertension, hyperlipidemia, hypothyroidism that presents with a complaint of chest discomfort. Patient states she had chest discomfort all throughout the day yesterday and is still present at this time. She states is very mild at this time. Denies associated shortness breath, nausea, or diaphoresis. Has history of hypertension and was on lisinopril however 3 weeks ago she had a angioedema and I was discontinued and she is placed on metoprolol. She states that she has been noticing palpitations and wonders if the metoprolol is causing it. Denies recent illness. Denies fevers or chills. She recalls having a stress test with Dr. Hutchins a couple or 3 years ago and that was okay. Review of Systems General: Patient denies fevers, chills recent, and recent travel HEENT: Patient denies headache, sore throat, difficulty swallowing. Cardiovascular: Has the chest discomfort as mentioned above. Complains of palpitations. No syncope. Denies diaphoresis. Respiratory: Denies shortness of breath or inspirational chest discomfort. Denies coughing wheezing or hemoptysis. GI: Patient denies nausea, vomiting, diarrhea, abdominal pain, bloody stools. Musculoskeletal: Patient denies joint pain or edema. Denies calf pain or edema. Neurovascular: Patient denies numbness, tingling, weakness in extremities. Denies headache. Endocrine: Denies polyuria and polydipsia. Hematologic: Denies easy bruising. Skin: Denies rash or itching. Past Family Social History Allergies: Coded Allergies: lisinopril (Verified Allergy, Severe, 01/05/17) THROAT/ TONGUE SWELLING Sulfa (Sulfonamide Antibiotics) (Unverified Allergy, Mild, 09/23/16) Past Medical History Hypertension, hyperlipidemia, hypothyroidism. Denies diabetes and known CAD. Nonsmoker. Past Surgical History Tonsillectomy, 2. Reported Medications Reported Meds & Active Scripts Active Reported Klor-Con 10 (Potassium Chloride) 10 Meq Tab 10 Meq PO BID Vitamin E (Vitamin E Mixed) 400 Unit Tablet Verapamil (Verapamil HCl) 120 Mg Tab 240 Mg PO BID Synthroid (Levothyroxine Sodium) 175 Mcg Tab 175 Mcg PO DAILY Simvastatin 20 Mg Tab 20 Mg PO HS Metoprolol Tartrate 50 Mg Tab 50 Mg PO BID Flexeril (Cyclobenzaprine HCl) 10 Mg Tab 10 Mg PO DAILY Aspirin 81 Mg Chew 81 Mg CHEW DAILY Klor-Con 10 (Potassium Chloride) 10 Meq Tab 10 Meq PO BID Doxazosin Mesylate 4 Mg Tab 4 Mg OR BID Active Ordered Medications Current Medications Medications (Trade) Dose Ordered Sig/Macey Route Start Time Stop Time Status Last Admin (Nitrostat Sl) 0.4 mg Q5M PRN SL 01/05/17 22:15 01/05/17 23:51 (NS Flush) 2 ml UNSCH PRN IV FLUSH 01/06/17 00:00 (NS Flush) 2 ml BID IV FLUSH 01/06/17 09:00 01/06/17 08:35 (Tylenol) 500 mg Q4H PRN PO 01/06/17 00:00 01/06/17 02:48 (Nitroglycerin 2% Oint) 1 inch Q6HR TOP 01/06/17 00:00 01/06/17 00:21 (Cardura) 4 mg BID PO 01/06/17 09:00 01/06/17 08:35 (Lopressor) 50 mg BID PO 01/06/17 09:00 01/06/17 08:34 (Isoptin) 240 mg BID PO 01/06/17 09:00 01/06/17 08:35 (Apresoline) 10 mg Q6HR PO 01/06/17 12:00 UNV Social History Nonsmoker. Rare alcohol. Denies illicit drugs. Physical Exam Vital Signs Vital Signs Date Time Temp Pulse Resp B/P (MAP) Pulse Ox O2 Delivery O2 Flow Rate FiO2 01/06/17 08:23 98.0 80 20 201/89 (126) 97 01/06/17 05:55 67 01/06/17 04:59 75 18 202/91 (128) 98 01/06/17 02:20 97.9 71 18 217/93 (134) 97 01/06/17 01:51 01/06/17 01:23 72 16 178/75 (109) 98 Room Air 01/06/17 00:51 78 16 197/80 (119) 98 Room Air 01/06/17 00:04 84 17 212/92 (132) 98 Room Air 01/05/17 23:50 76 16 203/81 (121) 96 Room Air 01/05/17 22:11 81 16 233/94 (140) 98 Room Air 01/05/17 19:18 98.1 89 18 240/106 (150) 99 Room Air Physical Exam GENERAL: This is a well-nourished, well-developed patient, in no apparent distress. Patient speaks in clear complete sentences. Patient is pleasant. HEENT: Head is atraumatic and normocephalic. Neck is supple without lymphadenopathy and trachea is midline. No JVD or carotid bruits. CARDIOVASCULAR: Regular rate and rhythm without murmurs, gallops, or rubs. RESPIRATORY: Clear to auscultation. Breath sounds equal bilaterally. No wheezes , rales, or rhonchi. Chest wall is nontender. No use of accessory muscles. GASTROINTESTINAL: Abdomen is nontender, nondistended. Abdomen soft. No obvious pulsatile mass or bruit. No CVA tenderness. Strong femoral pulses bilaterally. Normal bowel sounds in all quadrants. MUSCULOSKELETAL: Patient is moving upper and lower extremities freely. No calf tenderness or edema, no Homans sign. Strong pulses in upper and lower extremities. NEUROLOGICAL: Patient is alert and oriented. Cranial nerves 2-12 are grossly intact. No focal deficits and speech is clear. SKIN: No rash and turgor is normal. Laboratory Laboratory Tests Test 01/05/17 20:15 01/05/17 23:45 01/06/17 02:10 White Blood Count 5.8 Red Blood Count 4.57 Hemoglobin 13.3 Hematocrit 40.5 Mean Corpuscular Volume 88.6 Mean Corpuscular Hemoglobin 29.0 Mean Corpuscular Hemoglobin Concent 32.8 Red Cell Distribution Width 14.0 Platelet Count 159 Mean Platelet Volume 11.1 Neutrophils (%) (Auto) 46.6 Lymphocytes (%) (Auto) 36.9 Monocytes (%) (Auto) 11.2 Eosinophils (%) (Auto) 4.7 Basophils (%) (Auto) 0.6 Neutrophils # (Auto) 2.7 Lymphocytes # (Auto) 2.1 Monocytes # (Auto) 0.7 Eosinophils # (Auto) 0.3 Basophils # (Auto) 0.0 CBC Comment DIFF FINAL Differential Comment Prothrombin Time 11.2 Prothromb Time International Ratio 1.0 Activated Partial Thromboplast Time 26.8 Urine Color LIGHT-YELLOW Urine Turbidity CLEAR Urine pH 6.0 Urine Specific [place] 1.023 Urine Protein NEG Urine Glucose (UA) NEG Urine Ketones NEG Urine Occult Blood NEG Urine Nitrite NEG Urine Bilirubin NEG Urine Urobilinogen LESS THAN 2.0 Urine Leukocyte Esterase NEG Urine RBC 1 Urine WBC LESS THAN 1 Urine Squamous Epithelial Cells 1 Urine Mucus FEW Microscopic Urinalysis Comment CULT NOT INDICATED Blood Urea Nitrogen 28 Creatinine 0.98 Random Glucose 123 Calcium Level 8.7 Magnesium Level 2.0 Sodium Level 142 Potassium Level 3.8 Chloride Level 109 Carbon Dioxide Level 27.6 Anion Gap 5 Estimat Glomerular Filtration Rate 68 Total Creatine Kinase 271 241 228 Creatine Kinase MB 2.8 2.5 2.3 Creatine Kinase MB % 1.0 1.0 1.0 Troponin I 0.04 0.03 0.03 Result Diagram: 01/05/17201401/05/172014 Imaging Last 48 hours Impressions Chest X-Ray 01/05/17 1935 Signed Impressions: Service Date/Time: Thursday, January 05, 2017 20:03 - CONCLUSION: No acute cardiopulmonary process. Sarmad Cabrera MD Aorta CTA 01/05/17 0000 Signed Impressions: Service Date/Time: Thursday, January 05, 2017 22:21 - CONCLUSION: 1. Small bilateral pleural effusions. 2. Otherwise negative. Thoracoabdominal aorta is normal in caliber throughout its length without aneurysmal disease or dissection. 3. Atherosclerotic calcification of the coronary arteries. Sarmad Cabrera MD Course EKGs are sinus rhythm with nonspecific T-wave changes. Some PVCs. Caprini VTE Risk Assessment Caprini VTE Risk Assessment: Mod/High Risk (score >= 2) Caprini Risk Assessment Model Point Value = 1 Point Value = 2 Point Value = 3 Point Value = 5 Age 41-60 Minor surgery BMI > 25 kg/m2 Swollen legs Varicose veins or History of unexplained or recurrent spontaneous Oral contraceptives or hormone replacement Sepsis (< 1 month) Serious lung disease, including pneumonia (< 1 month) Abnormal pulmonary function Acute myocardial infarction Congestive heart failure (< 1 month) History of inflammatory bowel disease Medical patient at bed rest Age 61-74 Arthroscopic surgery Major open surgery (> 45 min) Laparoscopic surgery (> 45 min) Malignancy Confined to bed (> 72 hours) Immobilizing plaster cast Central venous access Age >= 75 History of VTE Family history of VTE Factor V Leiden Prothrombin [id number] Lupus anticoagulant Anticardiolipin antibodies Elevated serum homocysteine Heparin-induced thrombocytopenia Other congenital or acquired thrombophilia Stroke (< 1 month) Elective arthroplasty Hip, pelvis, or leg fracture Acute spinal cord injury (< 1 month) Prophylaxis Regimen Total Risk Factor Score Risk Level Prophylaxis Regimen 0-1 Low Early ambulation 2 Moderate Order ONE of the following: *Sequential Compression Device (SCD) *Heparin 5000 units SQ BID 3-4 Higher Order ONE of the following medications: *Heparin 5000 units SQ TID *Enoxaparin/Lovenox 40 mg SQ daily (WT < 150 kg, CrCl > 30 mL/min) *Enoxaparin/Lovenox 30 mg SQ daily (WT < 150 kg, CrCl > 10-29 mL/min) *Enoxaparin/Lovenox 30 mg SQ BID (WT < 150 kg, CrCl > 30 mL/min) AND/OR *Sequential Compression Device (SCD) 5 or more Highest Order ONE of the following medications: *Heparin 5000 units SQ TID (Preferred with Epidurals) *Enoxaparin/Lovenox 40 mg SQ daily (WT < 150 kg, CrCl > 30 mL/min) *Enoxaparin/Lovenox 30 mg SQ daily (WT < 150 kg, CrCl > 10-29 mL/min) *Enoxaparin/Lovenox 30 mg SQ BID (WT < 150 kg, CrCl > 30 mL/min) AND *Sequential Compression Device (SCD) Assessment and Plan Assessment and Plan * Chest pain: Patient has had serial cardiac enzymes and EKGs for ruling out purposes. She has been seen by Dr. Hutchins of cardiology in the chest pain center and will undergo a Lexiscan. She will be discharged home if her stress test was nonischemic with instructions to follow-up with PCP and cardiology. She states return to ED for interval issues. * Hypertension: We'll add hydralazine. Continue current meds. * Hyperlipidemia: Continue current medications. * Hypothyroidism: Continue current medications. Patient is stable at this time. She is agreeable to this plan. Rosalio Ward Jan 06, 2017 10:08
[2017-01-06] MEDS ORDERED: ASPIRIN 325 MG TAB PO SCH (10:30)
--- NOTE | 2017-01-06 11:22 | RADRPT ---
EXAM DATE/TIME: 01/06/2017 09:31 [place] COMPARISON: CTA THORACIC ABDOMINAL AORTA W 3D RECON, January 05, 2017, 22:21. INDICATIONS : Substernal chest pain. Angina. DOSE: 25.7 mCi Tc99m Myoview at stress. 8.7 mCi Tc99m Myoview at rest. 0.4 mg Lexiscan STRESS SYMPTOMS: Tired feeling. EJECTION FRACTION: 59% MEDICAL HISTORY : Hypertension. Hypothyroidism. SURGICAL HISTORY : section. Tonsillectomy. ENCOUNTER: Initial ACUITY: 1 day PAIN SCALE: 7/10 LOCATION: Substernal chest TECHNIQUE: The patient underwent pharmacologic stress with infusion of prescribed dose. Continuous ECG tracing was monitored during stress. Gated SPECT imaging was performed after stress and conventional SPECT i maging was performed at rest. The examination was performed on a SPECT/CT scanner, both attenuation and non-corrected datasets were reviewed. FINDINGS: DISTRIBUTION: The maximum perfused segment at stress is in the anterolateral wall. PERFUSION STUDY: The pattern of perfusion at stress is within normal limits. GATED STUDY: There is intact wall motion and thickening without hypokinetic or dyskinetic segments. CONCLUSION: Normal examination. RISK CATEGORY: Low (<1% Annual Mortality Rate) John Ravi MD on January 06, 2017 at 11:16 Board Certified Radiologist. This report was verified electronically.
[2017-01-06] MEDS ORDERED: hydrALAZINE HCL 10 MG TAB PO SCH (12:00)
[2017-01-06] MEDS ORDERED: HYDR-3798 PO ×2 (12:09→14:50)
--- NOTE | 2017-01-06 12:09 | HHI.DCPOC ---
Discharge Care Plan Diagnosis: (1) Chest pain (2) Hypertension (3) Hyperlipidemia Goals to Promote Your Health * To prevent worsening of your condition and complications * To maintain your health at the optimal level Directions to Meet Your Goals Take your medications as prescribed Follow your dietary instruction Follow activity as directed Keep your appointments as scheduled Take your immunizations and boosters as scheduled If your symptoms worsen call your PCP, if no PCP go to Urgent Care Center or Emergency Room Smoking is Dangerous to Your Health. Avoid second hand smoke Call the 24-hour hour crisis hotline for domestic abuse at [facility] Jan 06, 2017 12:09
[2017-01-06] MEDS ORDERED: LEVOTHYROXINE SODIUM 125 MCG TAB PO SCH (13:00)
--- NOTE | 2017-01-06 14:43 | EKG ---
Date Performed: 01/05/2017 Time Performed: 20:16:34 PTAGE: 66 years EKG: Sinus rhythm WITH FREQUENT VENTRICULAR PREMATURE COMPLEXES POSSIBLE LEFT ATRIAL ENLARGEMENT POSSIBLE LEFT VENTRIC ULAR HYPERTROPHY NONSPECIFIC T-WAVE ABNORMALITY ABNORMAL ECG Since PREVIOUS TRACING , no significant change noted PREVIOUS TRACIN10/08/2015 06.17 DOCTOR: Brooke Hutchins Interpretating Date/Time 01/06/2017 14:40:47
--- NOTE | 2017-01-06 14:44 | EKG ---
Date Performed: 01/06/2017 Time Performed: 02:27:27 PTAGE: 66 years EKG: Sinus rhythm POSSIBLE LEFT ATRIAL ENLARGEMENT ST DEVIATION AND MODERATE T-WAVE ABNORMALITY, CONSIDER LATERAL ISCH EMIA ABNORMAL ECG Since PREVIOUS TRACING , no significant change noted PREVIOUS TRACIN01/06/2017 00.12 DOCTOR: Brooke Hutchins Interpretating Date/Time 01/06/2017 14:42:33
--- NOTE | 2017-01-06 14:44 | EKG ---
Date Performed: 01/06/2017 Time Performed: 00:12:47 PTAGE: 66 years EKG: Sinus rhythm MODERATE VOLTAGE CRITERIA FOR LVH, CONSIDER NORMAL VARIANT NONSPECIFIC T-WAVE ABNORMALITY BORDERLINE ECG Since PREVIOUS TRACING , no further PVC's PREVIOUS TRACIN01/05/2017 20.16 DOCTOR: Brooke Hutchins Interpretating Date/Time 01/06/2017 14:42:08
--- NOTE | 2017-01-06 14:45 | TR ---
Date Performed: 01/06/2017 Time Performed: 09:52:49 DOCTOR: Brooke Hutchins DRUG LIST: CLINICAL HISTORY: REASON FOR TEST: REASON FOR ENDING: OBSERVATION: CONCLUSION: Lexiscan stress test was performed under standard four minute protocol. Radionuclid e was injected one minute prior to ending the test. No electrocardiographic abormalities were present to suggest ischemia. Nuclear imaging and interpretation are pending. COMMENTS:
[2017-01-06] MEDS ORDERED: PRAVASTATIN SOD 40 MG TAB PO SCH (21:00)
[2017-01-06] MEDS ORDERED: POTASSIUM CHLORIDE 10 MEQ CONTROLLED RELEASE TAB PO SCH (21:00)
== END 2017-01-06 15:32 | disposition home or self-care (01) ==
LOC: NEPE 19:17 → NEDA 23:25 → NEPHCDU 01-06 01:48
PROVIDERS: ADMIT Internal Medicine Cardiovascular Disease; ATTEND Internal Medicine Cardiovascular Disease
DX: R07.89 Other chest pain (principal); I10 Essential (primary) hypertension; E78.5 Hyperlipidemia, unspecified; R73.03 Prediabetes; E03.9 Hypothyroidism, unspecified; R01.1 Cardiac murmur, unspecified; R94.31 Abnormal electrocardiogram [ECG] [EKG]; Z79.82 Long term (current) use of aspirin
CPT/HCPCS: 71020; 71275; 74174; 78452; 80048; 81001; 82550; 82552; 83735; 84484; 85025; 85610; 85730; 93005; 93017; 99285; A9502; G0378; J2785; Q9967

== ENCOUNTER → 2017-04-10 | Outpatient (CLI) | payer OTHER ==
[~2017-04-10] MED LIST changes: -ALBUAER3 INH; +ASPI-516 CHEW; -ASPI81TA82 PO; -AZIT500T2 PO; -BENZ100 PO; -CALC-179 OR; +CYCL10TA PO; -DIPH25CA PO; -FLEX10TA PO; +HYDR-3798 PO; +KLOR10TA PO; -LISI10TA PO; +METO50TA PO; -MOME17I EACH NARE; -POTA-267 PO; -PRED-503 PO; -PRED20 PO; +VERA120T3 PO; -VERA240C OR; -VITA400C70 PO; +VITA400T20
[2017-04-10 07:43] LABS: BILIRUBIN, URINE NEG (NEG); BLOOD, URINE NEG (NEG); GLUCOSE,URINE NEG (NEG); HYALINE CAST, URINE 6 /lpf (RARE); KETONE, URINE NEG (NEG); MUCUS URINE FEW /lpf (OCC); NITRITE,URINE NEG (NEG); PH, URINE 6.5 (5.0-8.5); SQUAMOUS EPITHELIAL CELL URINE 1 /hpf (0-5); URINE COLOR YELLOW (YELLW/STRAW); URINE LEUKOCYTE ESTERASE NEG (NEG)
[2017-04-10 07:44] LABS: AUTOMATED NEUTROPHIL # 2.2 TH/MM3 (1.8-7.7); BASOPHIL % 0.9 % (0.0-2.0); EOSINOPHIL # 0.3 TH/MM3 (0-0.4); EOSINOPHIL % 7.6 % (0.0-4.0); HEMATOCRIT 37.6 % (35.0-46.0); HEMOGLOBIN 12.5 GM/DL (11.6-15.3); LYMPH % 29.6 % (9.0-44.0); LYMPHOCYTE # 1.3 TH/MM3 (1.0-4.8); MEAN CELL VOLUME 86.9 FL (80.0-100.0); MEAN CORPUSCULAR HEMOGLOBIN 28.8 PG (27.0-34.0); MEAN CORPUSCULAR HGB CONC 33.2 % (32.0-36.0); MEAN PLATELET VOLUME 10.5 FL (7.0-11.0); MONO % 10.3 % (0.0-8.0); MONOCYTE # 0.4 TH/MM3 (0-0.9); NEUT % 51.6 % (16.0-70.0); PLATELET COUNT 155 TH/MM3 (150-450); RED BLOOD COUNT 4.33 MIL/MM3 (4.00-5.30); WHITE BLOOD COUNT 4.2 TH/MM3 (4.0-11.0)
[2017-04-10 07:55] LABS: ALBUMIN 3.6 GM/DL (3.4-5.0); AST (GOT) 17 U/L (15-37); BICARBONATE 29.4 MEQ/L (21.0-32.0); BLOOD UREA NITROGEN 27 MG/DL (7-18); CALCIUM 8.9 MG/DL (8.5-10.1); CHLORIDE 103 MEQ/L (98-107); GLOMERULAR FILTRATION RATE 87 ML/MIN (>89); GLUCOSE,FASTING 155 MG/DL (74-99); SODIUM (NA) 140 MEQ/L (136-145)
[2017-04-10 07:56] LABS: ALT (GPT) 20 U/L (10-53); CHOLESTEROL 153 MG/DL (120-200)
[2017-04-10 08:21] LABS: ALKALINE PHOSPHATASE 96 U/L (45-117); CHOLESTEROL/ HDL RATIO 3.15 RATIO; FOLATE 8.2 NG/ML (3.1-17.5); HDL CHOLESTEROL 48.5 MG/DL (40.0-60.0); LDL CHOLESTEROL 82 MG/DL (0-99); THYROXINE (T4) 11.3 MCG/DL (4.8-13.9); TOTAL BILIRUBIN ADULT 0.4 MG/DL (0.2-1.0); TOTAL PROTEIN 7.1 GM/DL (6.4-8.2); TRIGLYCERIDES 113 MG/DL (42-150)
[2017-04-10 14:40] LABS: HEMOGLOBIN A1C 7.2 % (4.3-6.0)
== END ==
LOC: CLAB 07:12
PROVIDERS: ATTEND Internal Medicine
DX: I10 Essential (primary) hypertension (principal); M81.8 Other osteoporosis without current pathological fracture; D64.9 Anemia, unspecified; E11.9 Type 2 diabetes mellitus without complications; R63.5 Abnormal weight gain; E78.5 Hyperlipidemia, unspecified; Z79.899 Other long term (current) drug therapy
CPT/HCPCS: 36415; 80053; 80061; 81001; 82043; 82306; 82607; 82746; 83036; 84436; 84443; 85025

== ENCOUNTER → 2017-05-12 | Outpatient (CLI) | payer OTHER ==
[2017-05-12 08:01] LABS: ALT (GPT) 28 U/L (10-53); AST (GOT) 26 U/L (15-37)
== END ==
LOC: CLAB 07:02
PROVIDERS: ATTEND Internal Medicine Interventional Cardiology
DX: E78.5 Hyperlipidemia, unspecified (principal); Z79.899 Other long term (current) drug therapy
CPT/HCPCS: 36415; 84450; 84460

== ENCOUNTER → 2017-07-21 | Outpatient (CLI) | payer OTHER ==
[2017-07-21 07:57] LABS: BICARBONATE 26.9 MEQ/L (21.0-32.0); CREATININE 0.93 MG/DL (0.50-1.00)
== END ==
LOC: CLAB 07:05
PROVIDERS: ATTEND Internal Medicine Interventional Cardiology
DX: I11.9 Hypertensive heart disease without heart failure (principal)
CPT/HCPCS: 36415; 80048